=== PATIENT | male | born 1980 | race Caucasian/White ===

== ENCOUNTER 2021-01-10 17:23 | Emergency (ER) | payer OTHER ==
[2021-01-10] MEDS ORDERED: BACTROBAN OINT22 GM EXT (18:42)
[2021-01-10] MEDS ORDERED: CEPHALEXIN500 MG PO (18:42)
== END 2021-01-10 18:51 | disposition home or self-care (01) ==
LOC: ER1 17:23
DX: S61.012A Laceration without foreign body of left thumb without damage to nail, initial encounter (principal); F17.200 Nicotine dependence, unspecified, uncomplicated; Z23 Encounter for immunization; W26.8XXA Contact with other sharp object(s), not elsewhere classified, initial encounter
CPT/HCPCS: 12002; 90471; 90715; 99283